=== PATIENT | male | born 1965 | race Native Hawaiian/Other Pacific Islander ===

== ENCOUNTER 2019-04-09 23:00 | Emergency (ER) | payer MEDICAID ==
--- NOTE | 2019-04-09 23:42 | ED PDOC ---
Arrival/HPI - General Chief Complaint: Bite Time Seen by Provider: 04/09/19 23:15 Historian: Patient - History of Present Illness Narrative History of Present Illness (Text): 04/09/19 23:33 53 y/o male, Past Medical History - Provider Review Primary Care Provider: Radha Benton - Infectious Disease Hx of Infectious Diseases: None - Psychiatric Hx Substance Use: No Family/Social History Smoking Status: Never Smoked Hx Alcohol Use: No Hx Substance Use: No Allergies/Home Meds Allergies/Adverse Reactions: Allergies No Known Allergies Allergy (Verified 04/09/19 23:07) Home Medications: Home Meds Medication Instructions Recorded Confirmed No Known Home Med 04/09/19 04/09/19 Disposition/Present on Arrival - Present on Arrival History of DVT/PE: No History of Uncontrolled Diabetes: No Urinary Catheter: No History of Decub. Ulcer: No History Surgical Site Infection Following: None - Disposition
[2019-04-09] MEDS ORDERED: TDAP Vaccine 0.5 mL Syr IM ONE (23:43)
[2019-04-09] MEDS ORDERED: Rabies Immune Globulin 150 INTLU/ML VIAL IM ONE (23:43)
[2019-04-09] MEDS ORDERED: Amoxicillin-Clav 875-125 mg Tab PO STA (23:44)
[2019-04-09] MEDS ORDERED: Oxycodone/Acetaminophen 5/325 mg Tab PO STA (23:44)
--- NOTE | 2019-04-09 23:46 | ED PDOC ---
Arrival/HPI <Bennie Kendrick - Last Filed: 04/09/19 23:52> - General Historian: Patient - History of Present Illness Narrative History of Present Illness (Text): 04/09/19 23:41 53 year old male, Mohawk mandarin speaking, unable to recall last TDAP, who presents to the ED status post dog bite tonight. 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 Patient states the dog's immunization status is unknown, states it is a stray dog from the street. Patient sustained abrasions, bruising, and a laceration to the left forearm and humerus. Patient denies any decreased range of motion, weakness/numbness/tingling in the extremity, or any other complaints. Symptom Onset: Sudden Symptom Course: Unchanged Activities at Onset: Light Context: Work <Jorge Luis Newman - Last Filed: 04/10/19 00:36> - General Chief Complaint: Bite Time Seen by Provider: 04/09/19 23:33 Past Medical History - Provider Review Nursing Documentation Reviewed: Yes Primary Care Provider: Radha Benton - Infectious Disease Hx of Infectious Diseases: None - Psychiatric Hx Substance Use: No <Jorge Luis Newman - Last Filed: 04/10/19 00:36> Family/Social History - Physician Review Nursing Documentation Reviewed: Yes Family/Social History: Unknown Family HX Smoking Status: Never Smoked Hx Alcohol Use: No Hx Substance Use: No <Jorge Luis Newman - Last Filed: 04/10/19 00:36> Allergies/Home Meds <Bennie Kendrick - Last Filed: 04/09/19 23:52> <Jorge Luis Newman - Last Filed: 04/10/19 00:36> Allergies/Adverse Reactions: Allergies No Known Allergies Allergy (Verified 04/09/19 23:07) Review of Systems - Physician Review All systems were reviewed & negative as marked: Yes - Review of Systems Constitutional: absent: Fatigue, Fevers Eyes: absent: Vision Changes ENT: absent: Hearing Changes Respiratory: absent: SOB, Cough Cardiovascular: absent: Chest Pain Gastrointestinal: absent: Abdominal Pain, Nausea, Vomiting Skin: Laceration, Other (+abrasion, +contusion). absent: Rash, Pruritis, Skin Lesions, Abscess, Ulcer Neurological: absent: Headache, Dizziness Psychiatric: absent: Anxiety, Depression, Suicidal Ideation <Jorge Luis Newman Q - Last Filed: 04/10/19 00:36> Physical Exam Vital Signs Reviewed: Yes Temperature: Afebrile Blood Pressure: Normal Pulse: Regular Respiratory Rate: Normal Appearance: Positive for: Well-Appearing, Non-Toxic, Comfortable Pain Distress: Moderate Mental Status: Positive for: Alert and Oriented X 3 - Systems Exam Head: Present: Atraumatic, Normocephalic Pupils: Present: PERRL Extroacular Muscles: Present: EOMI Conjunctiva: Present: Normal Mouth: Present: Moist Mucous Membranes Neck: Present: Normal Range of Motion Respiratory/Chest: Present: Clear to Auscultation, Good Air Exchange. No: Respiratory Distress, Accessory Muscle Use Cardiovascular: Present: Regular Rate and Rhythm, Normal S1, S2. No: Murmurs Abdomen: No: Tenderness, Distention, Peritoneal Signs Back: Present: Normal Inspection Upper Extremity: Present: Normal ROM, NORMAL PULSES, Neurovascularly Intact, Capillary Refill < 2s, Other (LUE: Approximately 3-4 superficial swelling/contusions to left forearm consistent with dog bite. 2cm superficial laceration with swelling to left lateral humerus, FROM without limitation, sensation intact, motor 5/5, neurovascular intact, +radial pulse. ). No: Cyanosis, Edema, Tenderness, Swelling, Erythema, Temperature Abnormalties, Deformity Lower Extremity: Present: Normal Inspection. No: Edema Neurological: Present: GCS=15, CN II-XII Intact, Speech Normal, Motor Func Grossly Intact, Normal Sensory Function, Normal Cerebellar Funct Skin: Present: Warm, Dry, Normal Color. No: Rashes Psychiatric: Present: Alert, Oriented x 3, Normal Insight, Normal Concentration <Jorge Luis Newman Q - Last Filed: 04/10/19 00:36> Medical Decision Making - RAD Interpretation Radiology Orders: 04/09/19 23:43 ELBOW LEFT 3 VIEWS ROUTINE [RAD] Stat FOREARM LEFT [RAD] Stat HUMERUS LEFT [RAD] Stat - Medication Orders Current Medication Orders: Amoxicillin/Clavulanate Potassium (Augmentin 875 Mg-125 Mg Tab) 1 tab PO STAT STA; Protocol Stop: 04/09/19 23:45 Oxycodone/Acetaminophen (Percocet 5/325 Mg Tab) 1 tab PO STAT STA Stop: 04/09/19 23:45 Rabies Immune Globulin (Imogam) 1,515 intlu IM .ONCE ONE Stop: 04/09/19 23:44 Rabies Vaccine Human Diploid Cell (Rabavert Vaccine Inj) 2.5 units IM .ONCE ONE Stop: 04/09/19 23:44 Tetanus/Reduced Diphtheria/Acell Pertussis (Boostrix Vaccine Inj) 0.5 ml IM .ONCE ONE Stop: 04/09/19 23:44 <Bennie Kendrick - Last Filed: 04/09/19 23:52> ED Course and Treatment: 04/09/19 23:41 Impression: 53 year old male complaining of a dog bite to his left forearm/humerus tonight. Plan: -- XR Left Forearm -- XR Left Elbow -- XR Left Humerus -- Augmentin -- Percocet -- Imogam -- Rabies Vaccine -- TDAP -- Reassess and disposition Progress Notes: PROCEDURE: LACERATION REPAIR Performed by the emergency provider Location: lt. humerus Length: 2 cm Description: {"clean wound edges","no foreign bodies"} Distal CMS: Normal. No deficits. Neurovascularly intact. Anesthesia: Lidocaine 1% 1cc Preparation: The wound was cleaned with NS 1000cc and Betadyne. The area was prepped and draped in the usual sterile fashion. Exploration: The wound was explored and no foreign bodies were found. Procedure: The wound was closed with 5-0 nylon. There was {good / appropriate / adequate / loose} approximation. In total, 2 loosened were used. Post-Procedure: Good closure and hemostasis. The patient tolerated the procedure well and there were no complications. CSM remains intact. Post procedure dressing applied. 04/10/19 00:31 -Rabies vaccine and rabies immunoglobulin administered -Tdap administered -Augmentin and percocet given. -Discharge home with augmentin, motrin, return to the ER on day 3 (04/13/2019), day 7 (04/17/2019), day 14 (04/24/2019), sutures removed by day 10, keep it dry and clean for 2 days, see your own pmd within 2 days, return to the ER for any new or worsening signs or symptoms. <Jorge Luis Newman - Last Filed: 04/10/19 00:36> - PA / RESEARCH ANTHROPOLOGIST / Resident Statement JOEL has reviewed & agrees with the documentation as recorded. JOEL has examined the patient and agrees with the treatment plan. <Bennie Kendrick - Last Filed: 04/09/19 23:52> - PA / RESEARCH ANTHROPOLOGIST / Resident Statement JOEL has reviewed & agrees with the documentation as recorded. JOEL has examined the patient and agrees with the treatment plan. - Scribe Statement The provider has reviewed the documentation as recorded by the Belia Burciaga Provider Scribe Attestation: All medical record entries made by the Jgibmary were at my direction and personal ly dictated by me. I have reviewed the chart and agree that the record accurately reflects my personal performance of the history, physical exam, medical decision making, and the department course for this patient. I have also personally directed, reviewed, and agree with the discharge instructions and disposition. <Jorge Luis Newman - Last Filed: 04/10/19 00:36> Disposition/Present on Arrival <Bennie Kendrick - Last Filed: 04/09/19 23:52> - Present on Arrival Any Indicators Present on Arrival: No History of DVT/PE: No History of Uncontrolled Diabetes: No Urinary Catheter: No History of Decub. Ulcer: No History Surgical Site Infection Following: None - Disposition Have Diagnosis and Disposition been Completed?: Yes Disposition Time: 23:45 Patient Plan: Discharge <Jorge Luis Newman - Last Filed: 04/10/19 00:36> - Disposition Diagnosis: Dog bite, Laceration Disposition: HOME/ ROUTINE Condition: IMPROVED Additional Instructions: -Discharge home with augmentin, motrin, return to the ER on day 3 (04/13/2019), day 7 (04/17/2019), day 14 (04/24/2019), sutures removed by day 10, keep it dry and clean for 2 days, see your own pmd within 2 days, return to the ER for any new or worsening signs or symptoms. Prescriptions: Amoxicillin/Clavulanate [Augmentin 875 MG-125 MG] 1 tab PO BID #20 tab Ibuprofen [Motrin] 600 mg PO QID PRN #30 tab PRN Reason: Other Referrals: David Sierra MD [Staff Provider] - Follow up with primary [facility] at [facility] [place] - Follow up with primary Forms: [employer] (Korean), WORK NOTE
[2019-04-10] MEDS ORDERED: Rabies Immune Globulin 1500 Unit/5ml Vial IM ONE (01:45)
[2019-04-10 01:47] VITALS: RESP 18; O2SAT 98
[2019-04-10] MEDS ORDERED: Bacitracin 500 Units/gm Oint Foilpak UD ONE (01:57)
[2019-04-10 02:03] VITALS: BP 122/68; PULSE 68; TEMP 97.9
--- NOTE | 2019-04-10 10:29 | RAD ---
Date of service: 04/10/2019 PROCEDURE: Radiographs of the left elbow. HISTORY: dog bite COMPARISON: No prior. TECHNIQUE: 3 views obtained. FINDINGS: BONES: Normal. No fracture. JOINTS: Normal. No osteoarthritis. SOFT TISSUES: Normal. JOINT EFFUSION: None. OTHER FINDINGS: There is some gas density in the soft tissues along the radial side of the elbow. IMPRESSION: No evidence of fracture
--- NOTE | 2019-04-10 10:30 | RAD ---
Date of service: 04/10/2019 PROCEDURE: Radiographs of the Left Forearm HISTORY: dog bite COMPARISON: None available. TECHNIQUE: Frontal and lateral views obtained. 2 views obtained. FINDINGS: BONES: No fracture or destructive lesion. JOINT SPACES: Unremarkable. OTHER FINDINGS: None. IMPRESSION: Unremarkable radiographs of the left forearm.
--- NOTE | 2019-04-10 10:30 | RAD ---
PROCEDURE: Radiographs of the left humerus. HISTORY: dog bite COMPARISON: None. TECHNIQUE: 2 views obtained. FINDINGS: BONES: Normal. No fracture or focal lesion. SOFT TISSUES: Normal. OTHER FINDINGS: None. IMPRESSION: Normal radiographs of left humerus.
== END 2019-04-10 02:06 | disposition home or self-care (01) ==
LOC: ED 23:00
DX: S51.852A Open bite of left forearm, initial encounter (principal); X58.XXXA Exposure to other specified factors, initial encounter; Y99.0 Civilian activity done for income or pay

== ENCOUNTER 2019-04-13 11:31 | Emergency (ER) | payer MEDICAID ==
--- NOTE | 2019-04-13 11:42 | ED PDOC ---
Arrival/HPI - General Historian: Patient - History of Present Illness Narrative History of Present Illness (Text): 04/13/19 11:40 53 y/o s/p dog bite lt. upper extremity about 3 days ago, here for the day 3 of the rabies vaccination. Pt. had sutures, no fever or chills, healing well and dry, no numbness or tinging no night sweat, no rash, no dizziness, no other medical or psychological complaints. Past Medical History - Provider Review Nursing Documentation Reviewed: Yes - Infectious Disease Hx of Infectious Diseases: None - Psychiatric Hx Substance Use: No Family/Social History - Physician Review Nursing Documentation Reviewed: Yes Family/Social History: Unknown Family HX Smoking Status: Never Smoked Hx Alcohol Use: No Hx Substance Use: No Allergies/Home Meds Allergies/Adverse Reactions: Allergies No Known Allergies Allergy (Verified 04/13/19 11:56) Review of Systems - Review of Systems Constitutional: absent: Fatigue, Fevers Eyes: absent: Vision Changes ENT: absent: Hearing Changes Respiratory: absent: SOB, Cough Cardiovascular: absent: Chest Pain Gastrointestinal: absent: Abdominal Pain, Diarrhea, Nausea, Vomiting Skin: absent: Rash, Pruritis Neurological: absent: Headache, Dizziness Hemo/Lymphatic: absent: Adenopathy, Easy Bleeding Psychiatric: absent: Anxiety, Depression, Suicidal Ideation Physical Exam Vital Signs Reviewed: Yes Temperature: Afebrile Blood Pressure: Normal Pulse: Regular Respiratory Rate: Normal Appearance: Positive for: Well-Appearing, Non-Toxic, Comfortable Pain Distress: None Mental Status: Positive for: Alert and Oriented X 3 - Systems Exam Head: Present: Atraumatic, Normocephalic Pupils: Present: PERRL Extroacular Muscles: Present: EOMI Conjunctiva: Present: Normal Mouth: Present: Moist Mucous Membranes Neck: Present: Normal Range of Motion Respiratory/Chest: Present: Clear to Auscultation, Good Air Exchange. No: Respiratory Distress, Accessory Muscle Use Cardiovascular: Present: Regular Rate and Rhythm, Normal S1, S2. No: Murmurs Abdomen: No: Tenderness, Distention, Peritoneal Signs Back: Present: Normal Inspection Upper Extremity: Present: Normal Inspection, Other (LUE: visible healing dog bite puncture and laceration wound with sutures intact with no cellulitis or ulcer, no erythematous, FROM without limitation, sensation intact, motor 5/5, +radial pulse, capillary refill< 2 second, neurovascular intact. ). No: Cyanosis, Edema Lower Extremity: Present: Normal Inspection. No: Edema Neurological: Present: GCS=15, CN II-XII Intact, Speech Normal Skin: Present: Warm, Dry, Normal Color. No: Rashes Psychiatric: Present: Alert, Oriented x 3, Normal Insight, Normal Concentration Medical Decision Making ED Course and Treatment: 04/13/19 11:41 -Old dressing removed, clean with betadine and irrigated with saline, bacitracin and gauze dressing. -wound healing well and no signs of infection, pt. stated that he can move the lt. upper extremity without difficulty and much better. -rabies vaccine -Discharge home with education on continue your antibiotic and pain medication, please continue the follow up the rabies vaccination scheduled dates and sutures removed by day 7-10, return to the ER for any new or worsening signs or symptoms. - PA / FARM MACHINERY ERECTOR / Resident Statement / has reviewed & agrees with the documentation as recorded. Disposition/Present on Arrival - Present on Arrival Any Indicators Present on Arrival: No History of DVT/PE: No History of Uncontrolled Diabetes: No Urinary Catheter: No History of Decub. Ulcer: No History Surgical Site Infection Following: None - Disposition Have Diagnosis and Disposition been Completed?: Yes Diagnosis: Need for rabies vaccination, Visit for wound check Disposition: HOME/ ROUTINE Disposition Time: 11:41 Patient Plan: Discharge Condition: GOOD Additional Instructions: Discharge home with education on continue your antibiotic and pain medication, please continue the follow up the rabies vaccination scheduled dates and sutures removed by day 7-10, return to the ER for any new or worsening signs or symptoms. Referrals: [facility] at [facility] [place] [Outside] - Follow up with primary Forms: WORK NOTE
[2019-04-13 11:56] VITALS: BP 129/81; PULSE 51; RESP 18; TEMP 98.4; O2SAT 98
[2019-04-13] MEDS ORDERED: Bacitracin 500 Units/gm Oint Foilpak UD TOP ONE (12:22)
[2019-04-13] MEDS ORDERED: Bacitracin 500 Units/gm Oint Foilpak UD ONE (12:24)
== END 2019-04-13 13:00 | disposition home or self-care (01) ==
LOC: ED 11:31
DX: Z23 Encounter for immunization (principal); Z48.00 Encounter for change or removal of nonsurgical wound dressing; W54.0XXD Bitten by dog, subsequent encounter

== ENCOUNTER 2019-04-17 10:37 | Emergency (ER) | payer MEDICAID ==
[2019-04-17 10:52] VITALS: RESP 18; TEMP 98
[2019-04-17] MEDS ORDERED: Bacitracin 500 Units/gm Oint Foilpak UD TOP ONE (11:07)
--- NOTE | 2019-04-17 11:16 | ED PDOC ---
Arrival/HPI - General Chief Complaint: Rabies Vaccine Series Time Seen by Provider: 04/17/19 10:43 Historian: Patient - History of Present Illness Narrative History of Present Illness (Text): 53 y/o with no significant PMH presents to the ED for 3rd vaccine in rabies series s/p dog bite to left arm on 04/09/19. 3 sutures were placed in the wound at that visit. Pt was recommended to have sutures removed in 7-10 days. He is taking the Augmentin he was prescribed twice daily as directed. Denies fever, chills, left arm pain, extremity numbness/weakness/paresthesias, wound redness/drainage/tenderness/drainage, nausea, vomiting, dizziness, or any other associated symptoms. Past Medical History - Provider Review Nursing Documentation Reviewed: Yes - Infectious Disease Hx of Infectious Diseases: None - Psychiatric Hx Substance Use: No Family/Social History - Physician Review Nursing Documentation Reviewed: Yes Family/Social History: No Known Family HX Smoking Status: Never Smoked Hx Alcohol Use: No Hx Substance Use: No Allergies/Home Meds Allergies/Adverse Reactions: Allergies No Known Allergies Allergy (Verified 04/17/19 10:51) Physical Exam Vital Signs Reviewed: Yes Vital Signs Temp Pulse Resp BP Pulse Ox 04/17/19 10:49 98 F 72 18 128/72 98 Temperature: Afebrile Blood Pressure: Normal Pulse: Regular Respiratory Rate: Normal Appearance: Positive for: Well-Appearing, Non-Toxic, Comfortable Pain Distress: None Mental Status: Positive for: Alert and Oriented X 3 - Systems Exam Head: Present: Atraumatic, Normocephalic Pupils: Present: PERRL Extroacular Muscles: Present: EOMI Conjunctiva: Present: Normal Mouth: Present: Moist Mucous Membranes Neck: Present: Normal Range of Motion Upper Extremity: Present: Normal ROM, NORMAL PULSES, Erythema (mild around laceration), Neurovascularly Intact, Capillary Refill < 2s, Other (multiple abrasions to left forearm without signs of infection, 2cm well healing laceration to left lateral upper extremity with 3 prolene sutures intact, mild surrounding erythema and ecchymosis; no increased warmth, fluctuance, streaking, wound drainage, or tenderness). No: Cyanosis, Edema, Tenderness, Swelling, Temperature Abnormalties, Deformity Lower Extremity: Present: Normal ROM Neurological: Present: GCS=15, Speech Normal, Motor Func Grossly Intact (strength 5/5 bilaterally), Normal Sensory Function (sensation intact to light touch bilaterally), Gait Normal Skin: Present: Warm, Dry, Laceration (LUE), Other (see extremity exam). No: Rashes, Induration, Hot, Abscess Psychiatric: Present: Alert, Oriented x 3, Normal Insight, Normal Concentration, Normal Affect, Normal Mood Medical Decision Making ED Course and Treatment: 11:07 Initial Plan: * Wound cleaning * Suture Removal * Rabavert * Wound dressing 3 sutures removed from left upper arm wound after betadine cleaning without complication. Pt tolerated well. No drainage, fluctuance, streaking, tenderness, or warmth. Bacitracin and sterile dressing applied by me. Wound care discussed with patient. Advised to return to ED as scheduled for 4th rabies vaccine, continue antibiotics, and followup with PMD. Diagnostic testing results and plan of care discussed with patient. Strict instructions given regarding importance of followup, and signs/symptoms to return to ER including SOB, fever, chills, wound redness/tenderness/drainage, or any other new/worsening symptoms. Pt verbalized understanding of discussion. Patient is A&Ox3, ambulating with steady gait, with vital signs stable for discharge. - Medication Orders Current Medication Orders: Discontinued Medications Rabies Vaccine Human Diploid Cell (Rabavert Vaccine Inj) 2.5 units IM .ONCE ONE Stop: 04/17/19 11:01 Disposition/Present on Arrival - Present on Arrival Any Indicators Present on Arrival: No History of DVT/PE: No History of Uncontrolled Diabetes: No Urinary Catheter: No History of Decub. Ulcer: No History Surgical Site Infection Following: None - Disposition Have Diagnosis and Disposition been Completed?: Yes Diagnosis: Encounter for repeat administration of rabies vaccination, Visit for wound check Disposition: HOME/ ROUTINE Disposition Time: 11:16 Condition: STABLE Additional Instructions: Return to ER on 04/24/19 for your final vaccination or sooner if you develop signs of wound infection or fever Keep wounds clean and dry Followup with primary doctor within 2 days Return to ER with any new/worsening symptoms Referrals: Melisa Daniel MD [Medical Doctor] - Follow up with primary [facility] at [facility] [place] [Outside] - Follow up with primary Forms: [employer] (Frisian), WORK NOTE
[2019-04-17 11:40] VITALS: BP 128/76; PULSE 85; O2SAT 100
== END 2019-04-17 11:38 | disposition home or self-care (01) ==
LOC: ED 10:37
DX: Z23 Encounter for immunization (principal); Z48.02 Encounter for removal of sutures; W54.0XXD Bitten by dog, subsequent encounter

== ENCOUNTER 2019-04-24 11:10 | Emergency (ER) | payer MEDICAID ==
[2019-04-24 11:15] VITALS: BMI 26.6
[2019-04-24 11:19] VITALS: BP 127/80
--- NOTE | 2019-04-24 11:36 | ED PDOC ---
Arrival/HPI - General Chief Complaint: Rabies Vaccine Series Time Seen by Provider: 04/24/19 11:12 Historian: Patient - History of Present Illness Narrative History of Present Illness (Text): 11:50 53 y/o with no significant PMH presents to the ED for 4th and final vaccine in rabies series s/p dog bite to left arm on 04/09/19. 3 sutures were placed in the wound at that visit and removed last visit without difficulty. He took the course of Augmentin he was prescribed twice daily as directed. Denies fever, chills, left arm pain, extremity numbness/weakness/paresthesias, wound redness/drainage/tenderness/drainage, nausea, vomiting, dizziness, or any other associated symptoms. Past Medical History - Provider Review Nursing Documentation Reviewed: Yes - Infectious Disease Hx of Infectious Diseases: None - Psychiatric Hx Substance Use: No Family/Social History - Physician Review Nursing Documentation Reviewed: Yes Family/Social History: No Known Family HX Smoking Status: Never Smoked Hx Alcohol Use: No Hx Substance Use: No Allergies/Home Meds Allergies/Adverse Reactions: Allergies No Known Allergies Allergy (Verified 04/24/19 11:14) Review of Systems - Review of Systems Constitutional: Normal. absent: Fevers Eyes: Normal Respiratory: Normal. absent: SOB Cardiovascular: Normal. absent: Chest Pain, Palpitations Gastrointestinal: Normal. absent: Nausea, Vomiting Musculoskeletal: Normal. absent: Back Pain, Neck Pain Skin: Other (healing dog bites to left arm). absent: Abscess, Cellulitis Neurological: Normal. absent: Headache, Dizziness, Other (no numbness or paresthesias) Physical Exam Vital Signs Reviewed: Yes Vital Signs Temp Pulse Resp BP Pulse Ox 04/24/19 11:15 98.6 F 55 L 18 127/80 100 Temperature: Afebrile Blood Pressure: Normal Pulse: Bradycardic Respiratory Rate: Normal Appearance: Positive for: Well-Appearing, Non-Toxic, Comfortable Pain Distress: None Mental Status: Positive for: Alert and Oriented X 3 - Systems Exam Head: Present: Atraumatic, Normocephalic Pupils: Present: PERRL Extroacular Muscles: Present: EOMI Conjunctiva: Present: Normal Mouth: Present: Moist Mucous Membranes Neck: Present: Normal Range of Motion Upper Extremity: Present: Normal ROM, NORMAL PULSES, Neurovascularly Intact, Capillary Refill < 2s, Other (multiple healing dog bites to left forearm; healing to dog bite of left upper arm with black eschar and palpable hematoma; no warmth, tenderness, drainage, foul odor, erythema, streaking, or fluctuance.). No: Cyanosis, Edema, Tenderness, Temperature Abnormalties Lower Extremity: Present: Normal ROM Neurological: Present: GCS=15, Speech Normal, Motor Func Grossly Intact, Normal Sensory Function, Gait Normal Skin: Present: Warm, Dry Psychiatric: Present: Alert, Oriented x 3, Normal Insight, Normal Concentration, Normal Affect, Normal Mood Medical Decision Making ED Course and Treatment: 11:33 Initial Plan: * Rabavert Patient requesting to speak to doctor. ED attending Dr. Laureano examined patient at bedside, performed ultrasound of left upper arm. No signs of cellulitis or abscess, most likely collection of serous fluid. Recommends discharge home with plastic surgery followup. Diagnostic testing results and plan of care discussed with patient. Strict instructions given regarding prescription use, importance of followup, and signs/symptoms to return to ER including fever, chills, worsening pain, numbness, weakness, paresthesias, or any other new/worsening symptoms. Pt verbalized understanding of discussion. Patient is A&Ox3, ambulating with steady gait, with vital signs stable for discharge. - Medication Orders Current Medication Orders: Rabies Vaccine Human Diploid Cell (Rabavert Vaccine Inj) 2.5 units IM .ONCE ONE Stop: 04/24/19 11:33 Disposition/Present on Arrival - Present on Arrival Any Indicators Present on Arrival: No History of DVT/PE: No History of Uncontrolled Diabetes: No Urinary Catheter: No History of Decub. Ulcer: No History Surgical Site Infection Following: None - Disposition Have Diagnosis and Disposition been Completed?: Yes Diagnosis: Encounter for repeat administration of rabies vaccination Disposition: HOME/ ROUTINE Disposition Time: 11:45 Patient Plan: Discharge Patient Problems: Current Active Problems Problem Status Onset Encounter for repeat administration of rabies vaccination Acute Condition: GOOD Additional Instructions: Followup with plastic surgeon within 2 days Followup with primary doctor within 2 days Return to ER with any new/worsening symptoms Referrals: Dhruv Falk MD [Staff Provider] - Follow up with primary Forms: [employer] (Nauruan)
[2019-04-24 11:59] VITALS: PULSE 80; RESP 19; TEMP 98; O2SAT 99
== END 2019-04-24 11:59 | disposition home or self-care (01) ==
LOC: ED 11:10
DX: Z23 Encounter for immunization (principal)